=== PATIENT | female | born 1940 | race Caucasian/White ===

== ENCOUNTER → 2022-12-17 12:40 | Outpatient (BNVA) | payer MEDICARE, SELFPAY | PROVIDERS: PCP Internal Medicine; Visit Provider Psychiatry & Neurology Neurology | DX: G30.9 Alzheimer's disease, unspecified (principal); F02.84 Dementia in other diseases classified elsewhere, unspecified severity, with anxiety; F41.9 Anxiety disorder, unspecified; F32.A Depression, unspecified | CPT/HCPCS: 99202 ==

== ENCOUNTER 2023-03-19 13:34 | Outpatient (AMB) | payer MEDICARE, SELFPAY ==
--- NOTE | 2023-03-19 13:39 | MHC.OFFVIS ---
Intake Vital Signs 03/19/23 13:42 Weight 138 lb 4 oz BP 120/66 Blood Pressure Location Lt brachial Position Sitting Pulse 73 Pulse Source Pulse Oximeter Pulse Oximetry (%) 96 Oxygen Delivery Method Room Air Intake Visit Reasons: 3m follow up Dementia - Confirmed Intake Note: Fup Dementia Allergies No Known Allergies Allergy (Verified 03/19/23 13:45) HPI HPI Comments History of Present Illness Details 83 y/o female with dementia(Alzheimers) comes for follow up. Pt was diagnosed with Dementia in 2019 ? 2018? by Dr. Calderon. Pt is accompanied by her who is the main hydro station operator. Pt had [facility] senior services but she did not have enough services, and it is discontinued. Pt's helps her with toileting, showers, dressing and feeding etc. She is on memantine 10 mg BID and donepezil 5 mg daily. Donepezil was increased to 10 mg but pt's did not give her the increased the dosage yet. Pt's states that she has good days and bad days, but her condition usually worse when her BP runs low, not getting up and not eating. Pt's monitoring her BP couple of times a day. No episodes of wandering outside the house. She sleeps good. Pt's states that her hallucination seemed little bit better with mirtazapine. She has longstanding h/o anxiety and depression which worsened in 2000 after 05/04 incident. she has been under the care of psychologist for many years. [facility] Medical History Alzheimer's dementia with anxiety Anxiety Depression HTN (hypertension) Hyperlipidemia Osteoporosis Parotid adenoma Surgical History H/O knee surgery Family History Father Heart disease Mother Cancer Son Heart disease Social History Alcohol intake: never Patient Tobacco Use Status: Never used Tobacco Review of Systems Const All systems reviewed & are unremarkable except as noted in HPI and below Neuro Reports Abnormal speech present and Reports confusion Psych Reports confusion Physical Exam Vital Signs: Last Vital Signs Pulse 73 03/19/23 13:42 BP 120/66 03/19/23 13:42 Pulse Ox 96 03/19/23 13:42 Oxygen Delivery Method Room Air 03/19/23 13:42 Const General: cooperative, comfortable and confusion Nutritional Appearance: average body habitus Orientation/consciousness: confusion Limitations: physical limitations Eyes Pupils: Equal, round and reactive pupils present Neck Neck: Yes no meningeal signs Neuro Other: stooped , can follow simple commands Vocalizes in short sentences , communicates with her General: tone normal, moves all extremities, no meningeal signs, no focal motor deficits and confusion Cranial nerves: Yes Facial sensation intact/muscles of mastication intact, Yes Equal, round and reactive pupils present, Yes Nystagmus not present and Yes Normal facial strength present Cognition (Neuro): abnormal cognition Speech: Abnormal speech present Gait exam (Neuro): Other gait observations present (stooped , small steps) Motor exam (neuro): 5/5 motor strength present throughout and Normal motor muscle tone present throughout Deep tendon reflexes (DTR's): Right triceps reflex intensity grade: 2+, Left triceps reflex intensity grade: 2+, Rt Biceps (C5, C6): 2+, Left biceps reflex intensity grade: 2+, Right brachioradialis reflex intensity grade: 2+, Left brachioradialis reflex intensity grade: 2+, Right patellar reflex intensity grade: 2+ and Left patellar reflex intensity grade: 2+ Coordination: [id number] test normal Assessment & Plan Assessment & Plan (1) Alzheimer's dementia with anxiety: Code(s): G30.9 - Alzheimer's disease, unspecified; F02.84 - Dementia in other diseases classified elsewhere, unspecified severity, with anxiety (2) Anxiety: Code(s): F41.9 - Anxiety disorder, unspecified (3) Depression: Code(s): F32.A - Depression, unspecified Plan Increase donepezil 10mg qd. Continue to take Namenda 10mg bid. Advised patient's to monitor the side effects, GI upset or diarrhea. Refer to [facility] services for assessing and support in home Alzheimer's care. Orders: [facility]errals [facility] Referral F02.84 - Dementia in other diseases classified elsewhere, unspecified severity, with anxiety, G30.9 - Alzheimer's disease, unspecified Medications: Refilled donepezil 10 mg PO DAILY 90 tabs 6RF Coding Level of Care Code Est Pt Level 4 (65458) Diagnoses Alzheimer's dementia with anxiety G30.9; F02.84 Anxiety F41.9 Depression F32.A
[2023-03-19 13:42] VITALS: BP 120/66; PULSE 73; O2SAT 96
== END 2023-03-19 14:40 | disposition home or self-care (01) ==
PROVIDERS: Visit Provider Nurse Practitioner Family
DX: G30.9 Alzheimer's disease, unspecified (principal); F02.84 Dementia in other diseases classified elsewhere, unspecified severity, with anxiety; F41.9 Anxiety disorder, unspecified; F32.A Depression, unspecified
CPT/HCPCS: 99214

== ENCOUNTER → 2023-03-19 13:34 | Outpatient (BNVA) | payer MEDICARE, SELFPAY | PROVIDERS: Visit Provider Nurse Practitioner Family | DX: G30.9 Alzheimer's disease, unspecified (principal); F02.84 Dementia in other diseases classified elsewhere, unspecified severity, with anxiety; F41.9 Anxiety disorder, unspecified; F32.A Depression, unspecified | CPT/HCPCS: 99212 ==

== ENCOUNTER → 2023-06-26 13:26 | Outpatient (BNVA) | payer MEDICARE, SELFPAY | PROVIDERS: PCP Internal Medicine; Visit Provider Nurse Practitioner Family | DX: G30.9 Alzheimer's disease, unspecified (principal); F02.84 Dementia in other diseases classified elsewhere, unspecified severity, with anxiety; F41.9 Anxiety disorder, unspecified; F32.A Depression, unspecified ==